=== PATIENT | female | born 1945 | race Hispanic/Latino ===

== ENCOUNTER 2022-05-26 18:09 | Emergency (ER) | payer MEDICARE ==
[~2022-05-26] VITALS: Ht 149.9 cm; Wt 63.5 kg
[2022-05-26 18:40] LABS: BASOPHILS % (AUTO) 0.8 % (0.0-5.0); HEMATOCRIT 35.7 % (36-48); LYMPHOCYTES % (AUTO) 28.6 % (21.0-51.0); MEAN CORPUSCULAR HEMOGLOBIN 29.3 pg (27.0-33.0); MEAN CORPUSCULAR HGB CONC 33.6 g/dL (32.0-36.0); MEAN CORPUSCULAR VOLUME 87.3 fL (79-99); MONOCYTES % (AUTO) 7.3 % (3.0-13.0); NEUTROPHILS % (AUTO) 60.3 % (40.0-77.0); PLATELET COUNT (AUTO) 197 K/uL (130-400); RED BLOOD CELL COUNT(AUTO) 4.09 MIL/uL (4.00-5.50); RED CELL DISTRIBUTION WIDTH 12.7 % (11.0-15.5)
[2022-05-26 18:51] LABS: CREATININE 0.8 mg/dL (0.5-1.5); POTASSIUM 3.2 mmol/L (3.5-5.1)
[2022-05-26 18:56] LABS: ALBUMIN 3.5 g/dL (3.5-5.0); TOTAL PROTEIN, SERUM 6.9 g/dL (6.0-8.3)
[2022-05-26 19:17] LABS: APPEARANCE,URINE CLEAR (CLEAR); BILIRUBIN,URINE NEGATIVE (NEGATIVE); COLOR,URINE COLORLESS (YELLOW); GLUCOSE, URINE (UA) NEGATIVE (NEGATIVE); KETONES,URINE NEGATIVE (NEGATIVE); LEUKOCYTE ESTERASE ,URINE NEGATIVE Leu/uL (NEGATIVE); NITRATE,URINE NEGATIVE (NEGATIVE); OCCULT BLOOD,URINE NEGATIVE (NEGATIVE); PROTEIN,URINE NEGATIVE (NEGATIVE); UROBILINOGEN,URINE 0.2 mg/dL (0.2-1.0)
[2022-05-26] MEDS ORDERED: GABA300C PO (20:56)
[2022-05-26] MEDS ORDERED: VALA10002 PO (20:56)
[2022-05-26] MEDS ORDERED: ACET-2743 PO (20:56)
[2022-05-26] MEDS ORDERED: VALACYCLOVIR HCL 500 MG TABLET PO SCH ×2 (21:00→21:30)
[2022-05-26] MEDS ORDERED: ACETAMINOPHEN 500 MG TABLET PO ONE (21:30)
[2022-05-26 21:38] VITALS: BP 130/76
== END 2022-05-26 21:53 | disposition home or self-care (01) ==
LOC: EDH 18:09
DX: B02.9 Zoster without complications (principal)
CPT/HCPCS: 36415; 80053; 81003; 85025; 93005

== ENCOUNTER 2023-05-17 08:42 | Emergency (ER) | payer MEDICARE ==
[~2023-05-17] VITALS: Ht 157.5 cm; Wt 59.0 kg
[~2023-05-17 08:42] MED LIST: ACET-2743 PO; GABA300C PO; VALA10002 PO
[2023-05-17 09:31] LABS: BASOPHILS # (AUTO) 0.05 K/uL (0.00-0.20); BASOPHILS % (AUTO) 0.7 % (0.0-5.0); EOSINOPHILS # (AUTO) 0.07 K/uL (0.00-0.70); HEMATOCRIT 35.6 % (36-48); IMMATURE GRANULOCYTE ABSOLUTE 0.02 K/uL (0-1); LYMPHOCYTES # (AUTO) 1.5 K/uL (1.0-4.8); LYMPHOCYTES % (AUTO) 22.2 % (21.0-51.0); MEAN CORPUSCULAR HGB CONC 34.3 g/dL (32.0-36.0); MEAN CORPUSCULAR VOLUME 84.8 fL (79-99); MONOCYTES # (AUTO) 0.3 K/uL (0.1-1.0); MONOCYTES % (AUTO) 4.3 % (3.0-13.0); NEUTROPHILS # (AUTO) 4.8 K/uL (1.8-7.7); NEUTROPHILS % (AUTO) 71.5 % (40.0-77.0); PLATELET COUNT (AUTO) 263 K/uL (130-400); RED CELL DISTRIBUTION WIDTH 12.8 % (11.0-15.5); WHITE BLOOD COUNT (AUTO) 6.8 K/uL (4.8-10.8)
[2023-05-17 09:34] LABS: APPEARANCE,URINE CLEAR (CLEAR); BILIRUBIN,URINE NEGATIVE (NEGATIVE); COLOR,URINE YELLOW (YELLOW); GLUCOSE, URINE (UA) NEGATIVE (NEGATIVE); KETONES,URINE 5 mg/dL (NEGATIVE); LEUKOCYTE ESTERASE ,URINE LARGE Leu/uL (NEGATIVE); NITRATE,URINE NEGATIVE (NEGATIVE); OCCULT BLOOD,URINE MODERATE (NEGATIVE); PROTEIN,URINE NEGATIVE (NEGATIVE); UROBILINOGEN,URINE 0.2 mg/dL (0.2-1.0)
[2023-05-17 09:40] LABS: ADD UA MICROSCOPIC YES
[2023-05-17 09:44] LABS: ALBUMIN 3.7 g/dL (3.5-5.0); BILIRUBIN,TOTAL 0.4 mg/dL (0.2-1.0); TOTAL PROTEIN, SERUM 7.6 g/dL (6.0-8.3)
[2023-05-17 09:47] LABS: POTASSIUM 2.9 mmol/L (3.5-5.1)
[2023-05-17 09:48] LABS: BACTERIA,URINE MANY /HPF (None Seen)
[2023-05-17] MEDS: AMOX/CLAV 875/125MG TAB PO ONE (11:30)
[2023-05-17] MEDS: POTASSIUM BICARB/CIT AC 25 MEQ TABLET.EFF PO ONE (11:30)
[2023-05-17] MEDS ORDERED: AMOX1TAB16 PO (11:31)
[2023-05-17] MEDS ORDERED: POTA-192 PO (11:31)
[2023-05-17 11:48] VITALS: BP 141/62; PULSE 77; RESP 18; O2SAT 99
== END 2023-05-17 11:49 | disposition home or self-care (01) ==
LOC: EDH 08:42
DX: N30.01 Acute cystitis with hematuria (principal); E87.6 Hypokalemia; I10 Essential (primary) hypertension; F20.9 Schizophrenia, unspecified; I48.92 Unspecified atrial flutter; Z79.899 Other long term (current) drug therapy; Z98.890 Other specified postprocedural states
CPT/HCPCS: 36415; 80053; 81001; 84484; 85025; 87088; 93005